=== PATIENT | male | born 2000 | race Caucasian/White ===

== ENCOUNTER 2021-03-12 16:49 | Emergency (ER) | payer OTHER ==
[2021-03-12 21:29] LABS: HEMOGLOBIN 16.5 gm/dl (14.0-17.5); RED BLOOD COUNT 5.43 M/UL (4.20-5.50); WHITE BLOOD COUNT 3.4 K/UL (4.5-11.0)
[2021-03-12 21:35] LABS: BUN/CREATININE RATIO 15 (0-10)
[2021-03-12] MEDS ORDERED: ZOFRAN ODT 4 MG4 MG PO (21:44)
== END 2021-03-12 21:55 | disposition home or self-care (01) ==
LOC: ER1 16:49
PROVIDERS: Physician Assistant
DX: U07.1 COVID-19 (principal)
CPT/HCPCS: 71046; 80053; 85025; 99283